=== PATIENT | male | born 1965 | race African-American/Black ===

== ENCOUNTER 2016-11-11 21:25 | Emergency (ER) | payer SELFPAY ==
[~2016-11-11] VITALS: Ht 180.3 cm; Wt 73.5 kg
--- NOTE | 2016-11-11 22:29 | PHYS DOC ---
Past Medical History Past Medical History: Arthritis, Hypertension Additional Past Medical Histor: CHRONIC KIDNEY DISEASE, RAYNAUDS PHEN. Past Surgical History: Other Additional Past Surgical Histo: RIGHT WRIST, LEFT LEG ARTERY Alcohol Use: Heavy Additional Information: DRINKING [employer] TODAY Drug Use: Marijuana, Phencyclidine, Other Social History Narrative: "WET" Adult General Chief Complaint Chief Complaint: ALLERGIC REACTION HPI HPI Patient is a 51 year old male who presents by EMS for left upper lip swelling that occurred without known cause. Started this evening. He denies pain, tongue or throat swelling, difficulty swallowing or breathing, dental pain, trauma, itching, n/v, f/c. Has had this 1 time prior while he was taking lisinopril. He is currently on no medications and denies known new exposure. States he was given "3 drug cocktail IV the last time it happened and it improved." Review of Systems Review of Systems Constitutional: Denies fever or chills [] Eyes: Denies change in visual acuity, redness, or eye pain [] HENT: Denies nasal congestion or sore throat [] Respiratory: Denies cough or shortness of breath [] Cardiovascular: No additional information not addressed in HPI [] GI: Denies abdominal pain, nausea, vomiting, bloody stools or diarrhea [] : Denies dysuria or hematuria [] Musculoskeletal: Denies back pain or joint pain [] Integument: Denies rash or skin lesions [] Neurologic: Denies headache, focal weakness or sensory changes [] Endocrine: Denies polyuria or polydipsia [] Current Medications Current Medications Current Medications Medications (Trade) Dose Ordered Sig/Magdaleno Start Time Stop Time Status Last Admin Dose Admin Diphenhydramine HCl (Benadryl) 25 mg 1X ONCE 11/11/16 22:30 11/11/16 22:31 DC 11/11/16 22:31 25 MG Famotidine (Pepcid) 20 mg 1X ONCE 11/11/16 22:30 11/11/16 22:31 DC 11/11/16 22:31 20 MG Methylprednisolone Sodium Succinate (SOLU-Medrol 125MG VIAL) 125 mg 1X ONCE 11/11/16 22:30 17 22:31 DC 11/11/16 22:31 125 MG Allergies Allergies Allergies Coded Allergies Type Severity Reaction Last Updated Verified lisinopril Allergy Unknown TOUNGUE SWELLING, ANGIOEDEMA 11/11/16 Yes Physical Exam Physical Exam Constitutional: Well developed, well nourished, no acute distress, non-toxic appearance. [] HENT: Normocephalic, atraumatic, bilateral external ears normal, oropharynx moist, no oral exudates, nose normal. Has swelling of left upper lip and lower lateral lip and cheek at corner of mouth. No gumline tenderness, swelling or discoloration; No stridor, change of voice, tongue swelling, trismus, or drooling; Uvula is midline and floor is nontender [] Eyes: PERRLA, EOMI. [] Neck: Normal range of motion, supple, no stridor. [] Cardiovascular:Heart rate regular rhythm [] Lungs & Thorax: Bilateral breath sounds clear to auscultation [] Abdomen: Bowel sounds normal, soft, no tenderness. [] Skin: Warm, dry, no erythema, no rash. [] Back: Normal ROM. [] Extremities: No tenderness, ROM intact, no edema. [] Neurologic: Alert and oriented X 3, normal motor function, normal sensory function, no focal deficits noted. [] Psychologic: Affect normal, judgement normal, mood normal. [] Current Patient Data Vital Signs Vital Signs Date Time Temp Pulse Resp B/P (MAP) Pulse Ox O2 Delivery O2 Flow Rate FiO2 11/11/16 21:36 98.0 83 22 145/97 (113) 97 Room Air 98.0 Course & Med Decision Making Course & Med Decision Making Pertinent Labs and Imaging studies reviewed. (See chart for details) He was given medications with some improvement in swelling. Encouraged follow up with PCP. Return precautions given. He understands plan. Dragon Disclaimer Dragon Disclaimer This electronic medical record was generated, in whole or in part, using a voice recognition dictation system. Departure Departure Impression: Primary Impression: Angioedema Disposition: 01 HOME, SELF-CARE Condition: STABLE Referrals: NO PCP (PCP) Patient Instructions: Angioedema, [id number] Additional Instructions: Take Benadryl or use ice as needed for swelling. Follow up with your primary care doctor within 1 week. Return for any concerns. Problem Qualifiers Primary Impression: Angioedema Encounter type: initial encounter Qualified Codes: T78.3XXA - Angioneurotic edema, initial encounter Carolynn MARTINEZ MD Nov 11, 2016 22:29
[2016-11-11] MEDS ORDERED: diphenhydrAMINE 50 MG/ML VIAL IV ONE (22:30)
[2016-11-11] MEDS ORDERED: FAMOTIDINE 20 MG/2 ML VIAL IVP ONE (22:30)
[2016-11-11] MEDS ORDERED: methylPREDNISolone SOD SUCC PF 125 MG/2 ML VIAL. IV ONE (22:30)
[2016-11-11 23:45] VITALS: BP 138/89
== END 2016-11-11 23:45 | disposition home or self-care (01) ==
LOC: ER 21:25
DX: T78.3XXA Angioneurotic edema, initial encounter (principal); I12.9 Hypertensive chronic kidney disease with stage 1 through stage 4 chronic kidney disease, or unspecified chronic kidney disease; N18.9 Chronic kidney disease, unspecified; I73.00 Raynaud's syndrome without gangrene; M19.90 Unspecified osteoarthritis, unspecified site; F12.10 Cannabis abuse, uncomplicated; F16.10 Hallucinogen abuse, uncomplicated; Z88.8 Allergy status to other drugs, medicaments and biological substances
CPT/HCPCS: 96374; 96375; 99284; J1200; J2930; S0028